=== PATIENT | female | born 1975 | race Caucasian/White ===

== ENCOUNTER 2025-05-15 14:43 | Emergency (ER) | payer MEDICAID ==
[~2025-05-15] VITALS: Ht 170.2 cm; Wt 58.1 kg
[2025-05-15 15:03] VITALS: BP 121/66; TEMP 98.2; O2SAT 97
[2025-05-15] MEDS ORDERED: IBUP-1490 PO (15:41)
[2025-05-15] MEDS ORDERED: IBUPROFEN 600 MG TABLET ONE (16:28)
[2025-05-15] MEDS: IBUPROFEN 600 MG TABLET PO ONE (16:30)
== END 2025-05-15 17:25 | disposition home or self-care (01) ==
LOC: ER 14:48
DX: S82.832A Other fracture of upper and lower end of left fibula, initial encounter for closed fracture (principal); E03.9 Hypothyroidism, unspecified; W01.0XXA Fall on same level from slipping, tripping and stumbling without subsequent striking against object, initial encounter; Y93.89 Activity, other specified; Y92.89 Other specified places as the place of occurrence of the external cause; Y99.8 Other external cause status
CPT/HCPCS: 73564-TC; 73610-TC